=== PATIENT | female | born 1950 | race Caucasian/White ===

== ENCOUNTER 2021-04-24 07:04 | Day surgery (SDC) | payer OTHER ==
[2021-04-24] MEDS ORDERED: PROPOFOL 20 ML ONE ×3 (07:28→08:39)
[2021-04-24 07:47] VITALS: BMI 29.9
[2021-04-24 10:00] VITALS: BP 120/78; PULSE 72; TEMP 97.1
== END 2021-04-24 10:05 | disposition home or self-care (01) ==
LOC: FASU-ENDO 07:04
PROVIDERS: ATTEND Internal Medicine Gastroenterology
PROC: 0DB68ZX Excision of Stomach, Via Natural or Artificial Opening Endoscopic, Diagnostic (ICD-10-PCS; 2021-04-24)
PROC: 0DJD8ZZ Inspection of Lower Intestinal Tract, Via Natural or Artificial Opening Endoscopic (ICD-10-PCS; principal; 2021-04-24 08:51)
DX: Z12.11 Encounter for screening for malignant neoplasm of colon (principal); K57.30 Diverticulosis of large intestine without perforation or abscess without bleeding; K29.50 Unspecified chronic gastritis without bleeding; K29.80 Duodenitis without bleeding
CPT/HCPCS: 43239; G0121; 82962